=== PATIENT | male | born 1950 | race Caucasian/White ===

== ENCOUNTER 2020-09-17 19:21 | Emergency (ER) | payer MEDICARE, MEDICAID, SELFPAY ==
[2020-09-17 19:22] VITALS: BP 108/66; PULSE 76; RESP 16; TEMP 36.9; O2SAT 96; BMI 25.9
--- NOTE | 2020-09-17 19:57 | XR_ITS ---
PROCEDURE: XR PELVIS 1-2V CLINICAL INDICATION: fall Pain COMPARISON: No exams were available for comparison TECHNIQUE: XR Pelvis AP View FINDINGS: No fracture or dislocation is evident. No significant degenerative change. No lytic or blastic change. IMPRESSION: No acute findings. Dictated by: Hernandez Palm MD 09/18/2020 07:08 Hernandez Palm MD in [facility] 09/18/2020 07:08
--- NOTE | 2020-09-17 19:57 | XR_ITS ---
PROCEDURE: XR RIBS RT 2V CLINICAL INDICATION: fall Posttraumatic pain COMPARISON: CR CXR CHEST(2 VIEWS-NOT PORTABLE) from 06/13/2015 CR XR CHEST 2V from 09/17/2020 CR XR RIBS LT 2V from 09/17/2020 FINDINGS: Right ribs: There is mild pleural thickening along the right lateral hemithorax with an old right 8th rib fracture. No acute right rib fracture evident. Left ribs: There is a minimally displaced fracture involving the left 10th rib laterally. No evidence of pneumothorax. PA and lateral views of the chest shows unremarkable cardiovascular structures. There is some increased markings in the left lung base which may be due to an area of atelectasis or infiltrate. No evidence of pneumothorax. There is some increased density in the posterior costophrenic sulcus as seen on the lateral view and may represent a small pleural effusion. This may be on the left. IMPRESSION: 1. Minimally displaced left 10th rib fracture. 2. Old right 8th rib fracture. 3. Trace left effusion with possible infiltrate or atelectasis in the left lung base Dictated by: Hernandez Palm MD 09/18/2020 07:16 Hernandez Palm MD in [facility] 09/18/2020 07:16
--- NOTE | 2020-09-17 19:57 | XR_ITS ---
PROCEDURE: XR LUMBAR SPINE 2-3V CLINICAL INDICATION: fall Pain COMPARISON: CT ABDPELW/O CT ABD PELVIS W/O CONTRAST from 02/02/2016 FINDINGS: Normal alignment. No acute fracture or dislocation. Mild lumbar curvature convex right. Multilevel degenerative disc disease Other findings:None. IMPRESSION: No acute findings. Dictated by: Hernandez Palm MD 09/18/2020 07:10 Hernandez Palm MD in [facility] 09/18/2020 07:10
--- NOTE | 2020-09-17 19:57 | XR_ITS ---
PROCEDURE: XR SACRUM COCCYX MIN 2V CLINICAL INDICATION: fall Posttraumatic pain COMPARISON: No exams were available for comparison FINDINGS: No fracture or dislocation. No lytic or blastic change. There is normal mineralization. The joint spaces are well-preserved. No significant degenerative/arthritic changes. No erosive changes evident. Other findings:None. IMPRESSION: No acute findings. Dictated by: Hernandez Palm MD 09/18/2020 07:05 Hernandez Palm MD in [facility] 09/18/2020 07:05
--- NOTE | 2020-09-17 20:00 | XR_ITS ---
PROCEDURE: XR THORACIC SPINE 2V CLINICAL INDICATION: fall Posttraumatic pain COMPARISON: CR CXR CHEST(2 VIEWS-NOT PORTABLE) from 06/13/2015 FINDINGS: No fracture or dislocation. No lytic or blastic change. There is normal mineralization. The joint spaces are well-preserved. No significant degenerative/arthritic changes. No erosive changes evident. Other findings:There is minimal thoracic curvature convex right. IMPRESSION: No acute findings. Dictated by: Hernandez Palm MD 09/18/2020 07:08 Hernandez Palm MD in [facility] 09/18/2020 07:08
[2020-09-17 20:56] LABS: Basophils % 0.3 % (0.1-2.0); Eosinophils # 0.4 K/mm3 (0.0-0.4); Eosinophils % 4.8 % (0.1-12.0); Hematocrit 35.8 % (42.0-52.0); Hemoglobin 12.1 g/dL (14.1-18.0); Lymphocytes # 2.6 K/mm3 (0.7-4.5); Lymphocytes % 29.1 % (10-50); Mean Corpuscular HGB Conc 33.7 g/dL (31.8-35.4); Mean Corpuscular Hemoglobin 30.1 pg (27.0-31.2); Mean Corpuscular Volume 89.4 fl (80-94); Mean Platelet Volume 7.8 fl (7.4-10.4); Monocytes # 0.6 K/mm3 (0.1-1.0); Monocytes % 6.2 % (1.7-9.3); Neutrophils # 5.2 K/mm3 (1.8-7.8); Neutrophils % 59.7 % (37.0-80.0); Platelet Count 202 K/mm3 (142-424); Red Blood Count 4.01 M/mm3 (4.60-6.20); Red Cell Distribution Width 12.8 % (11.5-17.5); White Blood Count 8.8 K/mm3 (4.8-10.8)
[2020-09-17 21:06] LABS: Anion Gap 10.1 mEq/L (5-15); Blood Urea Nitrogen 15 mg/dl (9-20); Calcium 9.6 mg/dl (8.4-10.2); Carbon Dioxide 29 mmol/L (22.0-30.0); Chloride 102 mmol/L (98-107); Creatinine Clearance Estimated 68 mL/min (50-200); Estimated Glomerular Filt Rate 66 ml/min (>60); GFR (African American) 80 ML/MIN (>60); Glucose 102 mg/dl (74-100); Potassium 4.1 mmoL/L (3.5-5.1); Sodium 137 mmol/L (136-145)
[2020-09-17 21:15] LABS: NT Pro Brain Natriuretic Pep. 29.5 pg/mL (0-125)
--- NOTE | 2020-09-17 21:32 | [facility].EDGENADL ---
ED Disposition Clinical Impression: Fall Qualifiers: Encounter type: initial encounter Qualified Code(s): W19.XXXA - Unspecified fall, initial encounter Disposition: Home, Self-Care Condition on Discharge: Good Referrals: Tani Leger [Primary Care Provider] - - Critical Care Critical Care Time: No Attestation: On 09/17/20, the high probability of a clinically significant, sudden or life threatening deterioration of the following system(s) required my full and direct attention, intervention and personal management. The time I documented below is in addition to time spent performing reported procedures but includes the following listed in this critical care notation. Medical Decision Making - Medical Records Medical records reviewed: Yes: I reviewed the patient's medical records. - Madhav Inquiry Pt receiving controlled substance: No Vital Signs: 09/17/20 19:22 Temperature 98.5 F Temperature Source Oral Pulse Rate [Right Radial] 76 Respiratory Rate 16 Blood Pressure [Left Arm] 108/66 L Blood Pressure Mean [Left Arm] 80 Blood Pressure Source [Left Arm] Automatic Cuff Blood Pressure Position [Left Arm] Supine 02 Sat by Pulse Oximetry 96 Oxygen Delivery Method Room Air - Lab Data Lab results reviewed: Yes: I reviewed the patient's lab results. Lab Results 09/17/20 20:45: WBC 8.8, RBC 4.01 L, Hgb 12.1 L, Hct 35.8 L, MCV 89.4, MCH 30.1, MCHC 33.7, RDW 12.8, Plt Count 202, MPV 7.8, Neut % (Auto) 59.7, Lymph % (Auto) 29.1, [place] % (Auto) 6.2, Eos % (Auto) 4.8, Baso % (Auto) 0.3, Neut # (Auto) 5.2, Lymph # (Auto) 2.6, [place] # (Auto) 0.6, Eos # (Auto) 0.4, Baso # (Auto) 0.0 09/17/20 20:45: Sodium 137, Potassium 4.1, Chloride 102, Carbon Dioxide 29, Anion Gap 10.1, BUN 15, Creatinine 1.10, Estimated Creat Clear 68, Estimated GFR 66, Est GFR ( Amer) 80, Glucose 102 H, Calcium 9.6 09/17/20 20:45: NT-Pro-B Natriuret Pep 29.5 Result diagrams: 09/17/20 20:45 09/17/20 20:45 Orders (Tests/Meds): ED MEDICATIONS Discontinued Medications Generic Name Dose Route Start Last Admin Trade Name Devante PRN Reason Stop Dose Admin Morphine Sulfate 4 mg 09/17/20 20:45 09/17/20 20:47 Morphine 4mg/Ml Syringe IV 09/17/20 20:46 4 mg ONCE ONE Administration Ondansetron HCl 4 mg 09/17/20 20:45 09/17/20 20:47 Ondansetron 4mg/2ml Vial IV 09/17/20 20:46 4 mg ONCE ONE Administration ORDERS Category Date Time Status XR chest 2V Stat Exams 09/17/20 19:57 Taken XR lumbar spine 2-3V Stat Exams 09/17/20 19:57 Taken XR pelvis 1-2V Stat Exams 09/17/20 19:57 Taken XR ribs LT 2V Stat Exams 09/17/20 19:57 Taken XR ribs RT 2V Stat Exams 09/17/20 19:57 Taken XR sacrum coccyx min 2V Stat Exams 09/17/20 19:57 Taken XR thoracic spine 2V Stat Exams 09/17/20 20:00 Taken Medical Decision Narrative: 69-year-old male presenting after falls, patient with history of schizophrenia, current vital signs are stable, patient alert and oriented, has signs of tenderness on chest patient able to ambulate, no neuro deficits were found. Given the patient was complaining of pain in his L-spine, x-rays were obtained as well as chest x-ray, pelvis and rib films. These were read by myself and were negative for fracture, patient repeat examination had no tenderness palpation of his chest, back was able to ambulate, was discharged home, patient is being cared by his brother who feels comfortable taking care of him at home. Patient will follow up with their doctor for further work-up. General Adult HPI - General Chief complaint: Fall Stated complaint: AO fell 09/16 injured back Time Seen by Provider: 09/17/20 19:32 Mode of Arrival: Ambulatory Limitations: No Limitations Description of Symptoms (Recalled from ER Triage Doc. by RN): Pt c/o lower back pain from frequent falls for about a year . Pt reports most recent fall yesterday aftr being tripped by a dog. He denies hitting head. Denies neck pain. Denies LO
[2020-09-17 22:09] VITALS: BP 124/57; PULSE 88; RESP 17; TEMP 36.8; O2SAT 98
== END 2020-09-17 22:13 | disposition home or self-care (01) ==
PROVIDERS: Emergency Medicine; Emergency Provider Emergency Medicine; PCP Pediatrics
DX: M54.5 Low back pain (principal); R06.02 Shortness of breath; F20.9 Schizophrenia, unspecified; W01.0XXA Fall on same level from slipping, tripping and stumbling without subsequent striking against object, initial encounter; Y93.K1 Activity, walking an animal; Y92.89 Other specified places as the place of occurrence of the external cause
CPT/HCPCS: 71046; 71100; 72070; 72100; 72170; 72220; 80048; 83880; 85025; 99282; J2405